=== PATIENT | female | born 1995 ===

== ENCOUNTER 2019-03-26 16:26 | Inpatient (IN) | payer BC ==
[~2019-03-26 16:26] MED LIST: ACETYLCYSTEINE IV SCH; DEXTROSE 5% IV SCH; WATER IV SCH
[2019-03-26] MEDS ORDERED: Rocuronium Bromide 50 MG/5 ML VIAL ONE (16:40)
[2019-03-26] MEDS ORDERED: Ondansetron PF 4 MG/2 ML Vial ONE (16:43)
[2019-03-26 17:01] LABS: #Lymphocytes 2.4 thou/uL (1.20-3.40); #Monocytes 0.4 thou/uL (0.11-0.59); #Neutrophils 4.9 thou/uL (1.40-6.50); %Basophils 0.5 % (0.0-1.0); %Eosinophils 0.4 % (0.0-10.0); %Lymphocytes 30.7 % (21.0-51.0); %Monocytes 5.3 % (0.0-10.0); Hemoglobin 13.9 g/dL (12.0-16.0); Mean Corpuscular HGB CONC 33.4 g/dL (32.0-36.0); Mean Corpuscular Hemoglobin 30.4 pg (27.0-31.0); Mean Corpuscular Volume 90.9 fL (78.0-98.0); Mean Platelet Volume 6.3 fL (7.4-10.4); Platelet Count 287 thou/uL (130-400); RBC Distribution Width 11.7 % (11.5-14.5); Red Blood Cell (RBC) Count 4.58 mill/uL (4.20-5.40); White Blood Cell (WBC) Count 7.8 thou/uL (4.8-10.8)
[2019-03-26] MEDS ORDERED: Fentanyl CADD 250 ML IVPB SCH (17:08)
[2019-03-26 17:09] LABS: Actual Bicarbonate (HCO3a) 15.8 mEq/L (22-28); Analyzer IN Cardio ER; Base Excess (BEa) -6.6 mEq/L (-2.0 to +3.0); Carboxyhemoglobin (COHb) 0.3 gm% (0.0-3.0); Hemoglobin (Hb) 12.7 g/dL (12.0-16.0); O2 Tension (PaO2) 306.1 mmHg (80.0-100.0); Potassium - ABG Lab 2.72 mmol/L (3.70-5.30); pH, Arterial 7.44 (7.35-7.45)
[2019-03-26 17:10] LABS: CO2 Tension 23.8 mmHg (35.0-45.0); Puncture Site RRA
[2019-03-26] MEDS ORDERED: fentaNYL Citrate/PF 2,000 MCG in Sodium Chloride 0.9% 60 ML IV SCH ×2 (17:13→19:41)
[2019-03-26 17:18] LABS: ALT (SGPT) 10 U/L (8-55); AST (SGOT) 14 U/L (5-34); Albumin 4.5 g/dL (3.5-5.0); Alcohol 41 mg/dL (Less than 10); Alkaline Phosphatase 53 U/L (40-150); Anion Gap 16 mmol/L (10-20); BUN (Urea Nitrogen) 6 mg/dL (7.0-18.7); Bilirubin, Total 1.2 mg/dL (0.2-1.2); Calc. Creatinine Clearance 84 mL/min (70-130); Calcium 9.1 mg/dL (7.8-10.44); Carbon Dioxide 18 mmol/L (22-29); Chloride 107 mmol/L (98-107); Estimated GFR-MDRD 75; Globulin 2.8 g/dL (2.4-3.5); Glucose 284 mg/dL (70-105); Lipase 31 U/L (8-78); Potassium 3.1 mmol/L (3.5-5.1); Protein, Total 7.3 g/dL (6.0-8.3); Salicylate Less than 8.0 mg/dL (15.0-30.0); Sodium 138 mmol/L (136-145)
[2019-03-26 17:23] LABS: Bilirubin Negative (Negative); Blood, Urine Negative (Negative); Clarity CLEAR (Clear); Glucose, Urine (Dipstick) Negative (Negative); Leukocyte Negative (Negative); Nitrite Negative (Negative); Protein, Urine (Dipstick) Negative (Neg-Trace); Urobilinogen 0.2 mg/dL (0.2-1.0)
[2019-03-26 17:27] LABS: Specific Gravity, Urine 1.004 (1.002-1.036)
--- NOTE | 2019-03-26 17:27 | RAD ---
Chest one view HISTORY: Intubation. FINDINGS: Cardiac silhouette and pulmonary vasculature are unremarkable. Mediastinum is midline. Tip of an endotracheal catheter overlies the thoracic inlet. Nasogastric tube descends to the abdomen. No lobar consolidation or evidence of pneumothorax. IMPRESSION: Endotracheal catheter is in good radiographic position.
[2019-03-26 17:29] LABS: BHCG - Serum Negative (NEGATIVE); Pregs Control Background? CLEAR/WHITE (CLR/WHITE); Pregs Control Bar Appear? YES (CONTROL BAR)
[2019-03-26 17:42] LABS: Amphetamine Detected (NotDetected); Barbiturates Screen Not Detected (NotDetected); Benzodiazepine Screen Not Detected (NotDetected); Cocaine Metabolite Screen Not Detected (NotDetected); Medtox Control Line Valid? VALID (VALID); Medtox Reader # READER 1; Methadone Not Detected (NotDetected); Methamphetamine Not Detected (NotDetected); Opiate Screen Not Detected (NotDetected); Oxycodone Screen Not Detected (NotDetected); Phencyclidine (PCP) Not Detected (NotDetected); THC/Cannabinoid Screen Not Detected (NotDetected); Tricyclic Screen Not Detected (NotDetected)
--- NOTE | 2019-03-26 17:54 | CT ---
CT Brain WO Con History: [Altered mental status. Overdose.] Comparison: CT brain 2012 Findings: No acute hemorrhage or infarct. No midline shift or mass effect. Ventricular size and extra -axial CSF spaces are normal. Mild thickening of the ethmoid air cells and middle turbinates. Mastoids are clear. Impression: No acute intracranial abnormality.
[2019-03-26] MEDS ORDERED: Ondansetron PF 4 MG/2 ML Vial IVP PRN (18:00)
[2019-03-26] MEDS ORDERED: Dextrose 5% in Water 1,000 ML IV PRN (18:07)
[2019-03-26] MEDS ORDERED: Dextrose 50% Abboject 50 ML SYRINGE SLOW IVP PRN (18:07)
[2019-03-26] MEDS ORDERED: HumaLOG 300 UNITS/3 ML VIAL SC PRN ×2 (18:07)
[2019-03-26] MEDS ORDERED: WATER IV SCH ×2 (18:15→21:30)
[2019-03-26] MEDS ORDERED: ACETYLCYSTEINE IV SCH ×2 (18:15→21:30)
[2019-03-26] MEDS ORDERED: DEXTROSE 5% IV SCH ×2 (18:15→21:30)
--- NOTE | 2019-03-26 18:21 | PDOC.EVN ---
Event Note - Event Note Event Note: H&P DICTATION #[id number]
[2019-03-26] MEDS: Sodium Chloride 0.9% 1,000 ML IV SCH (19:16)
[2019-03-26] MEDS ORDERED: Propofol 1,000 MG/100 ML VIAL IV ONE (19:31)
[2019-03-26] MEDS ORDERED: DISCONTINUE PREVIOUS NARCOTIC PAIN MEDICATIONS AND BENZODIAZEPINES FS SCH (19:41)
[2019-03-26] MEDS ORDERED: Lorazepam 2 MG/ML VIAL SLOW IVP PRN (19:41)
[2019-03-26] MEDS ORDERED: Morphine 2 MG/ML SYRINGE SLOW IVP PRN (19:41)
[2019-03-26] MEDS ORDERED: Propofol 1,000 MG/100 ML VIAL IV PRN (19:41)
[2019-03-26] MEDS ORDERED: Propofol BOLUS 1,000 MG/100 ML VIAL IV PRN (19:41)
[2019-03-26] MEDS ORDERED: Fentanyl BOLUS 250 ML IVPB PRN (19:41)
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
[2019-03-27] MEDS: Sodium Chloride 0.9% 1,000 ML IV SCH ×2 (02:08→15:51)
[2019-03-27 06:23] LABS: #Basophils 0.1 thou/uL (0.0-0.2); #Eosinphils 0.1 thou/uL (0.0-0.7); #Lymphocytes 3.2 thou/uL (1.20-3.40); #Monocytes 0.9 thou/uL (0.11-0.59); #Neutrophils 5.7 thou/uL (1.40-6.50); %Basophils 0.7 % (0.0-1.0); %Eosinophils 0.7 % (0.0-10.0); %Lymphocytes 32.2 % (21.0-51.0); %Monocytes 9.1 % (0.0-10.0); %Neutrophils 57.4 % (42.0-75.0); Hemoglobin 12.8 g/dL (12.0-16.0); Mean Corpuscular HGB CONC 32.7 g/dL (32.0-36.0); Mean Corpuscular Hemoglobin 30.5 pg (27.0-31.0); Mean Corpuscular Volume 93.1 fL (78.0-98.0); Mean Platelet Volume 6.8 fL (7.4-10.4); Platelet Count 228 thou/uL (130-400); RBC Distribution Width 11.8 % (11.5-14.5); Red Blood Cell (RBC) Count 4.21 mill/uL (4.20-5.40); White Blood Cell (WBC) Count 9.8 thou/uL (4.8-10.8)
[2019-03-27 06:37] LABS: Hemoglobin A1c 4.8 % (4.0-6.0)
[2019-03-27 06:53] LABS: Anion Gap 15 mmol/L (10-20); BUN (Urea Nitrogen) 5 mg/dL (7.0-18.7); Calc. Creatinine Clearance 125 mL/min (70-130); Calcium 8.5 mg/dL (7.8-10.44); Carbon Dioxide 15 mmol/L (22-29); Chloride 115 mmol/L (98-107); Estimated GFR-MDRD Greater than 90; Glucose 62 mg/dL (70-105); Potassium 3.4 mmol/L (3.5-5.1); Sodium 142 mmol/L (136-145)
[2019-03-27 11:25] LABS: ALT (SGPT) 8 U/L (8-55); AST (SGOT) 14 U/L (5-34); Albumin 3.4 g/dL (3.5-5.0); Alkaline Phosphatase 37 U/L (40-150); Bilirubin, Direct 0.6 mg/dL (0.1-0.3); Bilirubin, Total 1.8 mg/dL (0.2-1.2); Magnesium 1.6 mg/dL (1.6-2.6); Phosphorus 2.4 mg/dL (2.3-4.7); Protein, Total 5.9 g/dL (6.0-8.3)
[2019-03-27 13:38] VITALS: BMI 19.0
--- NOTE | 2019-03-27 13:56 | PRG ---
DATE OF SERVICE: 03/27/2019 SUBJECTIVE: Ms. Bragg is awake and alert. Propofol was turned off this morning. Her vital signs are stable overnight. She is afebrile. Blood pressure, pulse, and respiratory rate were normal. She passed a leak test. She passed a spontaneous breathing trial. OBJECTIVE: LUNGS: Clear. HEART: Regular rhythm. ABDOMEN: Soft. EXTREMITIES: Without edema. LABORATORY DATA: White count is 9.8, hemoglobin 12.8, platelets 228. Sodium 142, potassium 3.4, chloride 115, bicarb 15, BUN 5, and creatinine 0.62. [place] she was a candidate for extubation, this was done successfully. I met with the father and answered all of his questions. IMPRESSION: 1. Suicide attempt with Tylenol and NyQuil. 2. Mild hyperchloremic acidosis, not a clinical issue, related to volume resuscitation in the emergency department, this will self correct. 3. Isolated elevation in bilirubin at 1.8. Liver enzymes are otherwise normal. She will need to continue with Mucomyst, but she is medically stable and can be seen for evaluation for inpatient management. This will facilitate planning and discharge if she is evaluated today, although we would not discharge her until she has finished her iv mucomyst later today. 4. The elevated bilirubin is unlikely to be related to her tylenol ingestion in my opinion. Job ID: [id number] I had a long conference with the father this afternoon re placement at an inpatient facility. He would prefer she be kept in town if possible. We will try to facilitate this process. EMY
[2019-03-27] MEDS: Ibuprofen 200 MG TAB PO PRN ×2 (15:50→20:42)
[2019-03-27 17:20] LABS: Acetaminophen Less than 6.0 mcg/mL (10.0-30.0)
[2019-03-27 21:52] LABS: ALT (SGPT) 7 U/L (8-55); AST (SGOT) 9 U/L (5-34); Acetaminophen Less than 6.0 mcg/mL (10.0-30.0); Albumin 3.4 g/dL (3.5-5.0); Alkaline Phosphatase 39 U/L (40-150); Bilirubin, Direct 0.5 mg/dL (0.1-0.3); Bilirubin, Total 1.5 mg/dL (0.2-1.2); Protein, Total 5.5 g/dL (6.0-8.3)
--- NOTE | 2019-03-27 22:34 | PDOC.PN ---
- Subjective Encounter Start Date: 03/27/19 Encounter Start Time: 11:45 Subjective: pt up in bed drowsy but arousable - Objective Resuscitation Status - Order Detail: 03/26/19 18:00 Resuscitation Status Routine Resuscitation Status: FULL: Full Resuscitation Discussed with: father Vital Signs & Weight: Vital Signs (12 hours) Temp Pulse Ox 03/27/19 21:00 95 03/27/19 19:00 98 F 03/27/19 16:00 98.7 F 03/27/19 12:00 99 03/27/19 11:53 98.8 F Weight Admit Weight 121 lb Weight 125 lb 0.034 oz Most Recent Monitor Data Heart Rate from ECG 89 NIBP 121/66 NIBP BP-Mean 84 Respiration from ECG 16 SpO2 96 I&O: 03/26/19 03/27/19 03/28/19 06:59 06:59 06:59 Intake Total 2682 1750 Output Total 1749 1855 Balance 933 -105 Result Diagrams: 03/27/19 06:10 03/27/19 06:10 Phys Exam - Physical Examination Neck: no nodes, no JVD, supple, full ROM Respiratory: no wheezing, no rales, no rhonchi, wheezing present, clear to auscultation bilateral Cardiovascular: RRR, no significant murmur, no rub, gallop, irregular Gastrointestinal: soft, non-tender, no distention, positive bowel sounds Neurological: non-focal, normal sensation, moves all 4 limbs Dx/Plan (1) Acute respiratory failure Code(s): J96.00 - ACUTE RESPIRATORY FAILURE, UNSP W HYPOXIA OR HYPERCAPNIA Status: Acute (2) Metabolic encephalopathy Code(s): G93.41 - METABOLIC ENCEPHALOPATHY Status: Acute (3) Tylenol overdose Code(s): T39.1X1A - POISONING BY 4-AMINOPHENOL DERIVATIVES, ACCIDENTAL, INIT Status: Acute (4) Suicide Code(s): X83.8XXA - INTENTIONAL SELF-HARM BY OTHER SPECIFIED MEANS, INIT ENCNTR Status: Acute - Plan pt exubated today, spoke with mental health who wants pt to go to inpatient -: psy unit. will continue acetylcysteine. monitor lfts -: will tranfer out of icu * . Review of Systems - Review of Systems Respiratory: negative: Cough, Dry, Shortness of Breath, Hemoptysis, SOB with Excertion, Pleuritic Pain, Sputum, Wheezing Cardiovascular: negative: chest pain, palpitations, orthopnea, paroxysmal nocturnal dyspnea, edema, light headedness, other Gastrointestinal: negative: Nausea, Vomiting, Abdominal Pain, Diarrhea, Constipation, Melena, Hematochezia, Other Musculoskeletal: negative: Neck Pain, Shoulder Pain, Arm Pain, Back Pain, Hand Pain, Leg Pain, Foot Pain, Other - Medications/Allergies Allergies/Adverse Reactions: Allergies Allergy/AdvReac Type Severity Reaction Status Date / Time No Known Allergies Allergy Verified 03/27/19 01:38 Medications: Current Medications Dextrose/Water (Dextrose 50%) 25 gm SLOW IVP PRN PRN PRN Reason: Hypoglycemia Glucagon (Glucagon) 1 mg IM PRN PRN PRN Reason: Hypoglycemia Sodium Chloride (Normal Saline 0.9%) 1,000 mls @ 100 mls/hr IV .Q10H GERALD Last Admin: 03/27/19 15:51 Dose: Not Given Dextrose/Water (D5w) 1,000 mls @ 0 mls/hr IV .Q0M PRN PRN Reason: Hypoglycemia Acetylcysteine 5,670 mg/ (Dextrose/Water) 1,028.35 mls @ 64.272 mls/hr IV INF GERALD Last Admin: 03/27/19 02:07 Dose: 1,028.35 mls Ibuprofen (Motrin) 400 mg PO BIDPRN PRN PRN Reason: Headache Last Admin: 03/27/19 20:42 Dose: 400 mg Insulin Human Lispro (Humalog) 0 units SC .MILD SLIDING SCALE PRN PRN Reason: Mild Correctional Scale Insulin Human Lispro (Humalog) 0 units SC .BEDTIME SLIDING SC PRN PRN Reason: Bedtime Correctional Scale Ondansetron HCl (Zofran) 4 mg IVP Q6H PRN PRN Reason: Nausea/Vomiting Last Admin: 03/27/19 10:05 Dose: 4 mg Sodium Chloride (Flush - Normal Saline) 10 ml IVF Q12HR GERALD Last Admin: 03/27/19 21:18 Dose: 10 ml Sodium Chloride (Flush - Normal Saline) 10 ml IVF PRN PRN PRN Reason: Saline Flush
[2019-03-28 01:13] VITALS: BP 118/76; TEMP 98.7
== END 2019-03-28 00:34 | DRG 917 ==
LOC: ERS 16:26 → CCU 18:33 → EEVIPCON 18:33 → T4-A 03-27 20:11
PROVIDERS: ADMIT Internal Medicine; ATTEND Internal Medicine
PROC: 0BH17EZ Insertion of Endotracheal Airway into Trachea, Via Natural or Artificial Opening (ICD-10-PCS; principal; 2019-03-26)
PROC: 0DH67UZ Insertion of Feeding Device into Stomach, Via Natural or Artificial Opening (ICD-10-PCS; 2019-03-26)
PROC: 5A1945Z Respiratory Ventilation, 24-96 Consecutive Hours (ICD-10-PCS; 2019-03-26)
DX: T39.1X2A Poisoning by 4-Aminophenol derivatives, intentional self-harm, initial encounter (principal); G92 Toxic encephalopathy; J96.00 Acute respiratory failure, unspecified whether with hypoxia or hypercapnia; E87.2 Acidosis; T48.3X2A Poisoning by antitussives, intentional self-harm, initial encounter; Y92.019 Unspecified place in single-family (private) house as the place of occurrence of the external cause; F10.10 Alcohol abuse, uncomplicated; E87.6 Hypokalemia; F17.200 Nicotine dependence, unspecified, uncomplicated; F15.90 Other stimulant use, unspecified, uncomplicated; E87.8 Other disorders of electrolyte and fluid balance, not elsewhere classified; F32.9 Major depressive disorder, single episode, unspecified
CPT/HCPCS: 31500; 36415; 36416; 70450; 71045; 80048; 80053; 80076; 80306; 80307; 81003; 82140; 82550; 82805; 83036; 83690; 83735; 84100; 84443; 84484; 84703; 85025; 93005; 93306; 94002; 94003; J0132; J2405; J2704; J3010; J3490; J7070